=== PATIENT | female | born 1945 | race Caucasian/White ===

== ENCOUNTER → 2017-12-25 | Outpatient (CLI) | payer MEDICARE | LOC: BICMAMMO 13:18 | PROVIDERS: ATTEND Obstetrics & Gynecology | DX: Z12.31 Encounter for screening mammogram for malignant neoplasm of breast (principal) | CPT/HCPCS: 77063; 77067 ==

== ENCOUNTER 2018-08-29 16:19 | Emergency (ER) | payer MEDICARE ==
[2018-08-29] MEDS ORDERED: Adacel (T-DAP) 0.5 ML VIAL ONE (16:43)
[2018-08-29] MEDS ORDERED: Lidocaine 1% MPF 2 ML VIAL ONE (16:44)
== END 2018-08-29 17:24 | disposition home or self-care (01) ==
LOC: SCSER 16:19
DX: S61.210A Laceration without foreign body of right index finger without damage to nail, initial encounter (principal); E03.9 Hypothyroidism, unspecified; E78.5 Hyperlipidemia, unspecified; I10 Essential (primary) hypertension; Z79.899 Other long term (current) drug therapy; W26.8XXA Contact with other sharp object(s), not elsewhere classified, initial encounter
CPT/HCPCS: 64450; 90471; 90715

== ENCOUNTER 2018-12-28 14:48 | Outpatient (CLI) | payer MEDICARE | END 2018-12-28 14:49 | disposition home or self-care (01) | LOC: BICMAMMO 14:48 | PROVIDERS: ATTEND Obstetrics & Gynecology | DX: Z12.31 Encounter for screening mammogram for malignant neoplasm of breast (principal) | CPT/HCPCS: 77063; 77067 ==

== ENCOUNTER 2023-03-26 08:03 | Outpatient (CLI) | payer MEDICARE, BC | END 2023-03-26 08:04 | disposition home or self-care (01) | LOC: SCSMRI 08:03 | PROVIDERS: ATTEND Family Medicine | DX: M48.062 Spinal stenosis, lumbar region with neurogenic claudication (principal); M54.50 Low back pain, unspecified; M41.86 Other forms of scoliosis, lumbar region; M47.816 Spondylosis without myelopathy or radiculopathy, lumbar region | CPT/HCPCS: 72100; 72148 ==

== ENCOUNTER 2023-10-10 13:22 | Outpatient (CLI) | payer MEDICARE, BC | END 2023-10-10 13:23 | disposition home or self-care (01) | LOC: SCSMRI 13:22 | PROVIDERS: ATTEND Psychiatry & Neurology Neurology | DX: M48.061 Spinal stenosis, lumbar region without neurogenic claudication (principal); M47.816 Spondylosis without myelopathy or radiculopathy, lumbar region; M47.817 Spondylosis without myelopathy or radiculopathy, lumbosacral region; M47.815 Spondylosis without myelopathy or radiculopathy, thoracolumbar region | CPT/HCPCS: 72158 ==

== ENCOUNTER 2024-01-14 09:29 | Outpatient (CLI) | payer MEDICARE, BC | END 2024-01-14 09:30 | disposition home or self-care (01) | LOC: ULT 09:29 | PROVIDERS: ATTEND Orthopaedic Surgery | DX: M79.661 Pain in right lower leg (principal); M71.21 Synovial cyst of popliteal space [Baker], right knee; Z96.651 Presence of right artificial knee joint ==

== ENCOUNTER 2024-03-30 13:12 | Outpatient (CLI) | payer MEDICARE, BC | END 2024-03-30 13:13 | disposition home or self-care (01) | LOC: SCSMRI 13:12 | PROVIDERS: ATTEND Nurse Practitioner Family | DX: T81.31XD Disruption of external operation (surgical) wound, not elsewhere classified, subsequent encounter (principal); M22.8X1 Other disorders of patella, right knee; M79.89 Other specified soft tissue disorders | CPT/HCPCS: 82565 ==